=== PATIENT | female | born 1965 ===

== ENCOUNTER 2019-09-16 20:41 | Emergency (ER) | payer SELFPAY | END 2019-09-17 00:01 | disposition left against medical advice (07) | LOC: M ED 20:41 | DX: Z53.21 Procedure and treatment not carried out due to patient leaving prior to being seen by health care provider (principal) ==

== ENCOUNTER 2019-09-16 20:41 | Emergency (ER) | payer SELFPAY | END 2019-09-17 00:01 | disposition left against medical advice (07) | LOC: CANPREER → M ED 20:41 | DX: Z53.21 Procedure and treatment not carried out due to patient leaving prior to being seen by health care provider (principal) ==